=== PATIENT | male | born 1960 | race African-American/Black ===

== ENCOUNTER 2017-09-19 14:58 | Emergency (ER) | payer MEDICAID ==
[~2017-09-19] VITALS: Ht 175.3 cm; Wt 85.0 kg
[2017-09-19 17:11] LABS: BASOPHILS % 1.3 % (0.0-2.0); CHLORIDE 107 mEq/L (98-107); EOSINOPHILS % 3.8 % (0.0-5.0); HEMATOCRIT. 39.2 % (42.0-52.0); HEMOGLOBIN. 13.8 g/dL (14.0-18.0); LYMPHOCYTES % 39.2 % (20.0-50.0); MEAN CORPUSCULAR HEMOGLOBIN 30.7 pg (28.0-32.0); MEAN CORPUSCULAR VOLUME 87.1 fL (80.0-94.0); MONOCYTES % 8.5 % (2.0-8.0); NEUTROPHILS % 47.2 % (40.0-76.0); PLATELET 211 x1000/uL (130-400); RED CELL DISTRIBUTION WIDTH 13.5 % (11.6-14.6)
[2017-09-19 17:12] LABS: INR 1.1; PROTHROMBIN TIME 11.1 sec (9.1-11.1)
[2017-09-19] MEDS ORDERED: METHOCARBAMOL 500MG TABLET PO ONE (18:45)
[2017-09-19] MEDS ORDERED: KETOROLAC 30MG/ML VIAL IV ONE (18:45)
[2017-09-19 20:23] VITALS: BP 136/94
== END 2017-09-19 20:26 | disposition home or self-care (01) ==
LOC: ER 14:58
DX: M54.5 Low back pain (principal); G89.29 Other chronic pain; I10 Essential (primary) hypertension
CPT/HCPCS: 36415; 71045; 72100; 80053; 83880; 84484; 85025; 85610; 93005; 96374; 99285; J1885

== ENCOUNTER 2021-02-13 04:19 | Emergency (ER) | payer MEDICAID ==
[~2021-02-13] VITALS: Ht 175.3 cm; Wt 84.5 kg
[2021-02-13 04:35] VITALS: BP 137/105
== END 2021-02-13 05:59 | disposition home or self-care (01) ==
LOC: ER 04:19
DX: Z71.1 Person with feared health complaint in whom no diagnosis is made (principal); Z20.822 Contact with and (suspected) exposure to COVID-19; I10 Essential (primary) hypertension; Z87.01 Personal history of pneumonia (recurrent)
CPT/HCPCS: 87426; 99283

== ENCOUNTER 2021-08-25 08:15 | Emergency (ER) | payer MEDICAID ==
[~2021-08-25] VITALS: Ht 172.7 cm; Wt 98.0 kg
[2021-08-25 08:32] VITALS: BP 178/115
== END 2021-08-25 09:08 | disposition home or self-care (01) ==
LOC: ER 08:49
DX: S40.869A Insect bite (nonvenomous) of unspecified upper arm, initial encounter (principal); I10 Essential (primary) hypertension; M19.90 Unspecified osteoarthritis, unspecified site; M54.30 Sciatica, unspecified side; W57.XXXA Bitten or stung by nonvenomous insect and other nonvenomous arthropods, initial encounter; Y93.9 Activity, unspecified; Y92.9 Unspecified place or not applicable
CPT/HCPCS: 99281

== ENCOUNTER 2023-12-25 07:33 | Emergency (ER) | payer MEDICAID ==
[~2023-12-25] VITALS: Ht 175.3 cm; Wt 82.0 kg
[2023-12-25 07:36] VITALS: PULSE 99; O2SAT 100
[2023-12-25 07:46] VITALS: BP 163/114; RESP 18; TEMP 98; O2SAT 98
[2023-12-25 09:48] LABS: EOSINOPHILS % 2.2 % (0.0-5.0); HEMATOCRIT. 39.7 % (42.0-52.0); HEMOGLOBIN. 13.3 g/dL (14.0-18.0); LYMPHOCYTES % 22.1 % (20.0-50.0); MEAN CORPUSCULAR HEMOGLOBIN 29.1 pg (28.0-32.0); MEAN CORPUSCULAR HGB CONC 33.5 g/dL (31.0-37.0); MEAN CORPUSCULAR VOLUME 86.9 fL (80.0-94.0); MEAN PLATELET VOLUME 8.6 fl (7.4-10.4); MONOCYTES % 9.9 % (2.0-8.0); NEUTROPHILS % 64.8 % (40.0-76.0); PLATELET 224 x1000/uL (130-400); RED BLOOD CELL COUNT 4.57 mill/uL (4.7-6.1); RED CELL DISTRIBUTION WIDTH 14.7 % (11.6-14.6); WHITE BLOOD COUNT 10.6 x1000/uL (4.5-11.0)
[2023-12-25 10:25] LABS: CALCIUM 9.6 mg/dL (8.7-10.4); CARBON DIOXIDE 26 mEq/L (21-32); CHLORIDE 107 mEq/L (98-107); POTASSIUM 3.7 mEq/L (3.5-5.1); SODIUM 139 mEq/L (136-145)
[2023-12-25 10:32] LABS: CREATININE 1.2 mg/dL (0.6-1.3); GLUCOSE 91 mg/dL (70-105); UREA NITROGEN BLOOD 14 mg/dL (9-23)
[2023-12-25 10:42] LABS: TROPONIN I HIGH SENSITIVITY 7 ng/L (3.0-53)
== END 2023-12-25 10:00 | disposition home or self-care (01) ==
LOC: ER 07:33
DX: M54.50 Low back pain, unspecified (principal); M79.671 Pain in right foot; I10 Essential (primary) hypertension
CPT/HCPCS: 80048; 85025; 84484; 36415; 71045; 93005; 99285; Z7610 ×2